=== PATIENT | female | born 1985 | race Two or more races ===

== ENCOUNTER 2016-11-11 16:32 | Outpatient (CLI) | payer MEDICAID ==
[2016-11-11 17:04] VITALS: BMI 29.2
== END 2016-11-11 19:38 | disposition home or self-care (01) ==
LOC: FBCOUT 16:32 → FBC 16:32 → FBCOUT 19:38
PROVIDERS: ATTEND Family Medicine
DX: O47.9 False labor, unspecified (principal); Z3A.00 Weeks of gestation of pregnancy not specified
CPT/HCPCS: 59025; 81002; G0463

== ENCOUNTER 2016-11-13 04:33 | Inpatient (IN) | payer MEDICAID ==
[2016-11-13 04:59] VITALS: BMI 29.5
[2016-11-13] MEDS ORDERED: MORPHINE SULFATE 2 MG/ML SYRINGE IM PRN (08:26)
[2016-11-13] MEDS ORDERED: PROMETHAZINE HCL 25 MG/ML VIAL IM ONE (08:27)
[2016-11-13] MEDS ORDERED: MORPHINE SULFATE 4 MG/ML SYRINGE ONE (08:33)
[2016-11-13] MEDS ORDERED: PUMP TUBING ONE (10:27)
[2016-11-13] MEDS ORDERED: LIDOCAINE Viscous 2% 15 ML UDCUP ONE (10:27)
[2016-11-13] MEDS ORDERED: LIDOCAINE 1% (PRES FREE) 30 ML VIAL ONE (10:27)
[2016-11-13] MEDS ORDERED: OXYTOCIN 10 UNITS/ML VIAL ONE (10:27)
[2016-11-13] MEDS ORDERED: MINERAL OIL 25 ML BOT ONE (10:27)
[2016-11-13] MEDS ORDERED: LACTATED RINGERS 1,000 ML ONE (10:28)
[2016-11-13] MEDS ORDERED: OXYTOCIN IN LR 500 ML IV ONE ×2 (10:28→10:29)
[2016-11-13] MEDS ORDERED: IV START KIT ONE (10:28)
[2016-11-13] MEDS: LACTATED RINGERS 1,000 ML IV SCH ×4 (11:03→17:35)
--- NOTE | 2016-11-13 11:15 | PDOC36 ---
Provider Note Note: cc: Admission H&P HPI: 31 y.o. year old DIPTI 11/07/2016, by Last Menstrual Period at 40w6d who presents with strong regular contractions every 3-5 minutes since 01:30 this morning. REVIEW OF SYSTEMS GENERAL:~ No fever or headache EYES:~ No double or blurry vision. CARDIOVASCULAR:~ No chest pain. RESPIRATORY:~ No severe shortness of breath or cough. GASTROINTESTINAL:~ No nausea or vomiting or right upper quadrant pain.~ PSYCHIATRIC:~ No anxiety or depression. PROBLEMS Cervical Dysplasia OB HISTORY #: 1, Date: 09/24/14, Sex: Female, Weight: 3.147 kg (6 lb 15 oz), GA: 41w0d, Delivery: Vaginal, Spontaneous Delivery, Apgar1: 7, Apgar5: 9, Living: Yes, Comments: None #: 2, Current PSH No past surgical history on file. SOC HX Report that she has never smoked. She has never used smokeless tobacco. She reports that she drinks alcohol but not after she found out she was l. She reports that she does not use illicit drugs. ALL No Known Allergies MEDICATIONS Current outpatient prescriptions:~ ~ MV-Min-Fe Fum-FA-DHA ( 1 PO), Take by mouth., Disp: , Rfl:~ ~ ranitidine (ZANTAC) 150 MG capsule, Take 1 capsule (150 mg total) by mouth 2 ( two) times a day., Disp: 60 capsule, Rfl: 11 PHYSICAL EXAMINATION VITAL SIGNS:~ AFVSS Estimated body mass index is 29.21 ~ Weight as of 11/08/16: 77.61 kg (171 lb 1.6 oz). Total weight gain is 22.272 kg (49 lb 1.6 oz) FHT:~ 130s moderate variability positive accels negative decels category I [employer]:~ q3-5 min SVE:~ 4-5/80/-2 GENERAL:~ No distress CARDIOVASCULAR:~ Regular rate and rhythm, no murmur, JVD or pedal edema. RESPIRATORY:~ Clear to auscultation bilaterally, respiratory effort is nonlabored at rest. GASTROINTESTINAL:~ Gravid no fundal tenderness NEUROLOGIC:~ Deep tendon reflexes are 2+ in the knees.~ Cranial nerves II-XII are grossly intact. PSYCHIATRIC:~ Alert and oriented x3, judgement and memory is intact, mood is pleasant. LABS & STUDIES B+ Antibody- Rubella Immune Hep B- HIV- GC/Chlamydia- Trep- Hgb 11.7 GBS Negative ULTRASOUNDS 22 wk - Anatomy scan at , grossly normal.Posterior placenta, no previa. Male sex. ASSESSMENT 31 y.o. year old DIPTI 11/07/2016, by Last Menstrual Period at 40w6d in labor, with slow progress over the last few hours. PLAN Labor: Slow progress over the last few hours. Will be able to admit and AROM. The head is well applied during a contraction. This should help facilitate labor. Otherwise expectant management. Jalil Franklin MD MPH
[2016-11-13 11:30] LABS: HEMATOCRIT 34.9 % (37.0-47.0); HEMOGLOBIN 11.5 gm/l (12.0-16.0); MEAN CELL VOLUME 86.2 fl (81.0-99.0); MEAN CORPUSCULAR HEMOGLOBIN 28.4 pg (27.0-31.0); RED CELL DISTRIBUTION WIDTH 12.9 % (11.5-14.5)
[2016-11-13] MEDS ORDERED: FENTANYL/ROPIVACAINE EPIDURAL 250 ML EP ONE (13:04)
[2016-11-13] MEDS ORDERED: EPIDURAL PUMP SET ONE (13:04)
[2016-11-13] MEDS ORDERED: EPIDURAL PROCEDURE TRAY ONE (13:08)
[2016-11-13] MEDS ORDERED: BUPIVACAINE 0.25% (PRES FREE) 30 ML VIAL ONE (13:08)
--- NOTE | 2016-11-13 19:32 | PDOC36 ---
Provider Note Note: SUBJECTIVE: Comfortable with an epidural OBJECTIVE: VS: AFVSS FHT: 150s moderate variability positive accels no decels category I [place]: q2-3 min SVE: 8/95/0 ASSESSMENT: 31 yo at 40 6/7 in labor PLAN: Pt with epidural, making slow progress, AROM'd earlier this AM, will continue to make position changes and recheck cervi in a few hours.
[2016-11-14] MEDS: LACTATED RINGERS 1,000 ML IV SCH ×2 (00:47→06:08)
--- NOTE | 2016-11-14 01:57 | PDOC36 ---
Provider Note Note: SUBJECTIVE: Pt has been pushing almost 2 hours now, caput is +1 to +2 without much improvement. Patient is very tired, wants to stop pushing for a while. OBJECTIVE: VS: AFVSS FHT: 150s moderate variability, no accels, variable decels, category II [place]: q2-4 min SVE: 10/100/+1 - +2 ASSESSMENT: 31 yo @ 41 weeks SROM x 19 hours in labor PLAN: Pushing x 2 hours without progress, very similar to last . She states she pushed for over 4 hours with her last . She would like to rest for a couple of hours then try pushing again which is reasonable. Will continue to monitor the baby closely and monitor mom for signs of infection.
[2016-11-14] MEDS ORDERED: SODIUM CHLORIDE 0.9% FLUSH 10 ML ONE (02:18)
[2016-11-14] MEDS ORDERED: ROPIVACAINE 0.5% 30 ML VIAL ONE (02:18)
[2016-11-14] MEDS ORDERED: IBUPROFEN 800 MG TABLET ONE (07:46)
[2016-11-14] MEDS ORDERED: BENZOCAINE/MENTHOL 60 APPLIC/BOT TP PRN (07:47)
[2016-11-14] MEDS ORDERED: SENNOSIDES 8.6 MG TABLET PO PRN (07:47)
[2016-11-14] MEDS ORDERED: MAGNESIUM HYDROXIDE 30 ML UDCUP PO PRN (07:47)
[2016-11-14] MEDS ORDERED: LACTATED RINGERS 1,000 ML IV PRN (07:47)
[2016-11-14] MEDS ORDERED: OXYCODONE HCL 5 MG TABLET PO PRN (07:47)
[2016-11-14] MEDS ORDERED: LANOLIN 50 APPLIC/7G TUBE TP PRN (07:47)
[2016-11-14] MEDS: IBUPROFEN 800 MG TABLET PO PRN ×2 (07:54→15:46)
--- NOTE | 2016-11-14 09:21 | PCMDEL ---
Delivery Note - Delivery Delivery (Date): 11/14/16 Delivery (Time): 07:12 Infant Gender: Male Length: 1 ft 8 in Position: OA Umbilical Cord: 3 Vessel Delayed Cord Clamping:: 2-3 min 1 Minute Total: 9 5 Minute Total: 9 Placenta:: 07:24 EBL:: 350 mL Perineum:: None Suture:: None Anesthesia/Meds:: Epidural Length ROM:: 20 hours Comments:: Nuchal cord x 1 easily reduced, otherwise no problems.
[2016-11-14] MEDS: DOCUSATE SODIUM 100 MG CAPSULE PO PRN (15:49)
[2016-11-14] MEDS: HYDROCODONE/ACETAMINOPHEN 5/325MG TABLET PO PRN ×2 (15:49→20:22)
[2016-11-15] MEDS: IBUPROFEN 800 MG TABLET PO PRN ×2 (03:15→09:04)
[2016-11-15] MEDS: HYDROCODONE/ACETAMINOPHEN 5/325MG TABLET PO PRN ×2 (03:15→09:05)
[2016-11-15 07:08] LABS: HEMOGLOBIN 8.8 gm/l (12.0-16.0)
[2016-11-15] MEDS: DOCUSATE SODIUM 100 MG CAPSULE PO PRN (09:04)
[2016-11-15 09:09] VITALS: BP 99/50
--- NOTE | 2016-11-15 10:43 | PDOC44 ---
- Subjective Day: 1 Patient doing well. Desires early d/c home today. Denies any symptoms of anemia , no dizziness or fatigue. Tolerating PO. Lochia minimal. BF well. Reports Pain Tolerable, Reports , Reports Lochia Light, Reports Tolerating Regular Diet, Denies Nausea, Denies Vomiting - Objective Temp Pulse Resp BP Pulse Ox 97.6 F 80 16 99/50 11/15/16 09:06 11/15/16 09:06 11/15/16 09:06 11/15/16 09:06 Lab Results 11/15/16 06:10 Hgb 8.8 L D Hct 27.0 L Current Medications Generic Name Dose Route Start Last Admin Trade Name Freq PRN Reason Stop Dose Admin Acetaminophen/Hydrocodone Bitart 1 - 2 tab 11/14/16 07:47 11/15/16 09:05 Delta 5/325 PO 1 tab Q4H PRN Administration Pain (Moderate) Benzocaine/Menthol 1 applic 11/14/16 07:47 Dermoplast TP PRN PRN Patient Comfort Docusate Sodium 100 mg 11/14/16 07:47 11/15/16 09:04 Colace PO 100 mg DAILY PRN Administration Comfort Emollient Ointment 1 applic 11/14/16 07:47 11/15/16 06:49 Igg-H-Sbnpfo TP 1 tube PRN PRN Administration sore nipples Lactated Ringer's 1,000 mls @ 100 mls/hr 11/14/16 07:47 Lactated Ringers IV .Q10H PRN Titrate per clinical situation Ibuprofen 800 mg 11/14/16 07:47 11/15/16 09:04 Motrin PO 800 mg Q6H PRN Administration Pain (Mild) Magnesium Hydroxide 30 ml 11/14/16 07:47 Milk Of Magnesia PO BEDTIME PRN Constipation Oxycodone HCl 5 - 10 mg 11/14/16 07:47 Roxicodone PO Q3H PRN Pain (Severe) Senna 17.2 mg 11/14/16 07:47 Senokot PO BEDTIME PRN Comfort Sodium Chloride 10 ml 11/14/16 07:47 Normal Saline 10ml Flush IV PRN PRN IV Flush Sodium Chloride 10 ml 11/14/16 09:00 11/15/16 10:13 Normal Saline 10ml Flush IV Not Given Q8HR TONYA - Physical Exam General: Afebrile, No Acute Distress Psych/Mental Status: Mood/Affect Appropriate, Bonding Well Neurological: Alert, Normal Speech Lungs: Clear to Auscultation Bilaterally, Normal Air Movement Cardiovascular: Regular Rate and Rhythm, Normal S1, Normal S2 Fundus: Firm, Midline Extremities: Full ROM, No Edema, No Tenderness Skin: Normal Color, Warm, Dry, Intact, No Rash - Problems:Assessment/Plan (1) (spontaneous vaginal delivery) Status: AcuteAssessment/Plan: Doing well Stable for discharge Will follow up with PCP in 6 weeks Rx Ibuprofen, iron and colace (2) Anemia due to blood loss, acute Status: AcuteAssessment/Plan: Patient asymptomatic, Hgb 8.8 Will start iron as outpatient Disposition: Stable, Anticipate DC to Home
== END 2016-11-15 11:52 | disposition home or self-care (01) | DRG 775 ==
LOC: FBCOUT 04:33 → FBC 04:33 → FBCOUT 10:32 → FBC 10:33
PROVIDERS: ADMIT Family Medicine; ATTEND Family Medicine
PROC: 10907ZC Drainage of Amniotic Fluid, Therapeutic from Products of Conception, Via Natural or Artificial Opening (ICD-10-PCS; 2016-11-13)
PROC: 10E0XZZ Delivery of Products of Conception, External Approach (ICD-10-PCS; principal; 2016-11-14)
DX: O75.89 Other specified complications of labor and delivery (principal); D62 Acute posthemorrhagic anemia; N87.9 Dysplasia of cervix uteri, unspecified; O76 Abnormality in fetal heart rate and rhythm complicating labor and delivery; Z3A.00 Weeks of gestation of pregnancy not specified; Z3A.41 41 weeks gestation of pregnancy; O69.81X0 Labor and delivery complicated by cord around neck, without compression, not applicable or unspecified; O99.02 Anemia complicating childbirth; Z37.0 Single live birth